=== PATIENT | male | born 1985 | race Native Hawaiian/Other Pacific Islander ===

== ENCOUNTER 2023-09-12 09:12 | Outpatient (CLI) | payer BC | END 2023-09-12 20:03 | disposition home or self-care (01) | LOC: US 09:12 | PROVIDERS: ATTEND Internal Medicine | DX: R74.01 Elevation of levels of liver transaminase levels (principal); Z80.8 Family history of malignant neoplasm of other organs or systems; E78.2 Mixed hyperlipidemia ==